=== PATIENT | male | born 1970 | race Hispanic/Latino ===

== ENCOUNTER 2019-01-11 22:34 | Emergency (ER) | payer BC ==
[~2019-01-11] VITALS: Ht 162.6 cm; Wt 88.9 kg
[2019-01-12] MEDS ORDERED: MORPHINE SULFATE INJ 4 MG/ML INJ 1ML ONE (00:47)
[2019-01-12] MEDS ORDERED: ONDANSETRON HCL INJ 2MG/ML 2ML 2 MG/ML VIAL ONE (00:48)
[2019-01-12] MEDS ORDERED: SODIUM CHLORIDE 0.9% 1000ML 2,000 ML ONE (00:52)
[2019-01-12 00:56] LABS: BASOPHILS # (AUTO) 0.1 (0.0-0.1); BASOPHILS % 0.4 % (0.0-1.0); EOSINOPHILS # (AUTO) 0.1 (0.0-0.4); EOSINOPHILS % 0.5 % (0.0-6.0); HEMATOCRIT 48.1 % (38.2-49.6); HEMOGLOBIN 16.5 g/dL (14.0-18.0); LYMPHOCYTES % 7.9 % (18.0-39.1); MEAN CORPUSCULAR HEMOGLOBIN 30.5 pg (28-32); MEAN CORPUSCULAR HGB CONC 34.3 g/dL (31-35); MEAN CORPUSCULAR VOLUME 88.9 fL (81-99); MONOCYTES # (AUTO) 0.5 (0.2-0.8); MONOCYTES % 3.9 % (4.4-11.3); NEUTROPHILS # (AUTO) 11.3 (2.1-6.9); NEUTROPHILS % 86.8 % (38.7-80.0); PLATELET COUNT 228 x10e3/uL (140-360); RED BLOOD COUNT 5.41 x10e6/uL (4.3-5.7); RED CELL DISTRIBUTION WIDTH 12.6 % (11.7-14.4)
[2019-01-12] MEDS ORDERED: TETANUS/DIPHTHERIA TOX ADULT 0.5 ML SYR IM ONE (01:00)
[2019-01-12 01:07] LABS: ALANINE AMINOTRANSFERASE 44 IU/L (0-55); ALBUMIN 4.5 g/dL (3.5-5.0); ALBUMIN/GLOBULIN RATIO 1.3 (0.8-2.0); ALKALINE PHOSPHATASE 84 IU/L (40-150); BLOOD UREA NITROGEN 15 mg/dL (7-26); BUN/CREATININE RATIO 15 (6-25); CALCIUM 10.1 mg/dL (8.4-10.2); CARBON DIOXIDE 23 mmol/L (22-29); CREATININE, SERUM 1.03 mg/dL (0.72-1.25); EST GLOMERULAR FILTRATION RATE > 60 ML/MIN (60-); GLUCOSE 97 mg/dL (74-118)
--- NOTE | 2019-01-12 01:17 | NUR ---
REPORT CALLED TO [facility] AT THIS TIME.
[2019-01-12 01:19] LABS: ANION GAP 15.9 mmol/L (8-16); CHLORIDE 103 mmol/L (98-107); POTASSIUM 3.9 mmol/L (3.5-5.1); SODIUM 139 mmol/L (136-145)
[2019-01-12] MEDS ORDERED: ONDANSETRON HCL INJ 2MG/ML 2ML 2 MG/ML VIAL IV STA (01:21)
[2019-01-12] MEDS ORDERED: MORPHINE SULFATE 5 MG/ML VIAL IV ONE (01:30)
--- NOTE | 2019-01-12 01:47 | NUR ---
EMS HERE FOR TRANSFER
[2019-01-12] MEDS ORDERED: MORPHINE SULFATE INJ 4 MG/ML INJ 1ML IV ONE (02:00)
== END 2019-01-12 01:30 | disposition short-term general hospital (02) ==
LOC: ER 22:34
DX: T22.6 Corrosion of second degree of shoulder and upper limb, except wrist and hand (principal); T21.61XA Corrosion of second degree of chest wall, initial encounter; T65.91XA Toxic effect of unspecified substance, accidental (unintentional), initial encounter; T20.511A Corrosion of first degree of right ear [any part, except ear drum], initial encounter; T28 Burn and corrosion of other internal organs; T32 Corrosions classified according to extent of body surface involved; Z23 Encounter for immunization
CPT/HCPCS: 36415; 80053; 85025; 90471; 90714; 99284; J2270; J2405; J7030